=== PATIENT | female | born 1995 | race American Indian/Alaskan Native ===

== ENCOUNTER 2017-08-12 07:19 | Emergency (ER) | payer SELFPAY ==
[2017-08-12 08:02] LABS: Bilirubin,Urine NEG (Negative); Blood,Urine NEG (Negative); Color,Urine Yellow (Yellow); Mucus,Urine 3+ /HPF; Protein,Urine <15 mg/dL mg/dL (Negative); Urobilinogen,Urine < 2.0 mg/dL (<2.0)
[2017-08-12 08:04] LABS: Benzodiazepines Screen,Urine PRESUMPTIVE NEGATIVE; Cocaine Screen,Urine PRESUMPTIVE NEGATIVE; Methadone Screen,Urine PRESUMPTIVE NEGATIVE; Opiate Screen,Urine PRESUMPTIVE NEGATIVE
[2017-08-12 08:18] LABS: Amphetamine Screen,Urine PRESUMPTIVE POSITIVE; Cannabinoid Screen,Urine PRESUMPTIVE POSITIVE
[2017-08-12 08:40] LABS: BUN/Creatinine Ratio 27; Blood Urea Nitrogen 16 mg/dL (7-17); Calcium 10.1 mg/dL (8.4-10.2); Hemolysis Index 5
[2017-08-12 08:51] LABS: Basophils # (Auto) 0.1 K/mm3 (0.0-0.1); Basophils % (Auto) 1.2 % (0.0-1.8); Eosinophils # (Auto) 0.3 K/mm3 (0.0-0.4); Eosinophils % (Auto) 4.7 % (0.0-4.3); Hematocrit 43.5 % (30.3-42.9); Hemoglobin 14.9 gm/dl (10.1-14.3); Lymphocytes % (Auto) 34.9 % (13.4-35.0); Mean Corpuscular HGB Conc 34 % (30-34); Mean Corpuscular Hemoglobin 29 pg (28-32); Mean Corpuscular Volume 85 fl (79-97); Monocytes # (Auto) 0.5 K/mm3 (0.0-0.8); Monocytes % (Auto) 9.4 % (0.0-7.3); Platelet Count 319 K/mm3 (140-440); Red Blood Count 5.12 M/mm3 (3.65-5.03); Red Cell Distribution Width 15.7 % (13.2-15.2)
[2017-08-12] MEDS ORDERED: NACL 0.9% 1000 ML 1,000 ML IV ONE (11:48)
--- NOTE | 2017-08-12 11:52 | Emergency Department Report ---
HPI - General Chief Complaint: Psych Time Seen by Provider: 08/12/17 11:46 - HPI HPI: The patient is a 22-year-old female presents for evaluation of mental health. The patient reports 3 days of constant and severe sadness and hopelessness, associated with positive suicidal ideation. She states that she has thought of a plan to hang herself, but has not engaged in self harming action this. The patient denies fever, headache, unexplained weight loss or weight gain, heat or cold intolerance, skin, hair, or nail changes, neuro deficits, homicidal ideations, or auditory or visual hallucinations. ED Past Medical Hx - Past Medical History Hx Asthma: Yes - Surgical History Additional Surgical History: X4 - Social History Smoking Status: Current Every Day Smoker Substance Use Type: Alcohol, Marijuana ED Review of Systems ROS: Stated complaint: MENTAL HEALTH EVALUATION Other details as noted in HPI Constitutional: denies: fever ENT: denies: throat or neck pain Respiratory: denies: cough, shortness of breath Cardiovascular: denies: chest pain Endocrine: denies unexplained weight loss or gain Gastrointestinal: denies: abdominal pain, nausea Genitourinary: denies: dysuria Musculoskeletal: denies: leg swelling Skin: denies: rash Neurological: denies: headache Hematological/Lymphatic: denies: easy bleeding or easy bruising Psych: reports hopelessness Physical Exam - Physical Exam Vital Signs: Vital Signs 08/12/17 07:26 Temperature 97.9 F Pulse Rate 93 H Respiratory 16 Rate Blood Pressure 114/76 O2 Sat by Pulse 100 Oximetry Physical Exam: General: well-nourished, well-developed, patient tearful Head: Normocephalic, atraumatic Eyes: normal sclera ENT: Mucous membranes are pale and dry Neck: No neck stiffness, no cervical adenopathy Respiratory: Breath sounds equal bilaterally, no wheezing, rales, or rhonchi Cardio: S1 and S2 present, no murmurs, rubs, gallops, capillary refill is delayed Abdomen: Normoactive bowel sounds, soft abdomen, no tenderness Chest WALL/Back: No tenderness to palpation of the chest wall, no CVA tenderness with percussion Musc: No pitting edema Skin: No rash Neuro: no facial drooping, normal speech Psych: Flat affect, depressed mood, poor insight, suicidal ideation ED Course Vital Signs 08/12/17 07:26 Temperature 97.9 F Pulse Rate 93 H Respiratory 16 Rate Blood Pressure 114/76 O2 Sat by Pulse 100 Oximetry ED Medical Decision Making - Lab Data Result diagrams: 08/12/17 08:04 08/12/17 08:04 - Medical Decision Making The patient was seen and examined by myself. The patient is placed on a rn cardiac and continuous pulse ox. On initial evaluation, the patient was found to be in no distress. Labs are obtained. The patient be given 1 L normal saline fluid bolus for treatment of her dehydration. Lab results are grossly unremarkable. The patient is medically clear. Mental health is consulted. Mental health evaluates the patient and agrees that the patient is at risk of harm to self. A 1013 is completed. The patient will be admitted to a psychiatric facility once bed placement is obtained. Critical care attestation.: If time is entered above; I have spent that time in minutes in the direct care of this critically ill patient, excluding procedure time. ED Disposition Clinical Impression: Depression with suicidal ideation, Dehydration Disposition: DC/TX-65 PSY HOSP/PSY UNIT Is pt being admited?: No Does the pt Need Aspirin: No Condition: Stable Referrals: PRIMARY CARE, [Primary Care Provider] - 3-5 Days Forms: Accompanied Note Time of Disposition: 11:50
[2017-08-12] MEDS ORDERED: ALUM-MAG HYDROX-SIMETH 200-200-20MG/5ML PO PRN (17:40)
[2017-08-12] MEDS ORDERED: MILK OF MAGNESIA PO PRN (17:40)
--- NOTE | 2017-08-13 12:45 | Emergency Department Report ---
HPI - General Chief Complaint: Psych Time Seen by Provider: 08/12/17 11:46 - HPI HPI: Patient given single dose of fluconazole, 150 mg, for report of painless vaginal discharge, whitish, typical of yeast infections, which she has had previously. ED Past Medical Hx - Past Medical History Hx Asthma: Yes - Surgical History Additional Surgical History: X4 - Social History Smoking Status: Current Every Day Smoker Substance Use Type: Alcohol, Marijuana ED Review of Systems ROS: Stated complaint: MENTAL HEALTH EVALUATION Other details as noted in HPI Physical Exam - Physical Exam Vital Signs: Vital Signs 08/12/17 08/13/17 07:26 07:21 Temperature 97.9 F 98.6 F Pulse Rate 93 H 77 Respiratory 16 13 Rate Blood Pressure 114/76 Blood Pressure 92/54 [Left] O2 Sat by Pulse 100 100 Oximetry ED Course Vital Signs 08/12/17 08/13/17 07:26 07:21 Temperature 97.9 F 98.6 F Pulse Rate 93 H 77 Respiratory 16 13 Rate Blood Pressure 114/76 Blood Pressure 92/54 [Left] O2 Sat by Pulse 100 100 Oximetry ED Medical Decision Making - Lab Data Result diagrams: 08/12/17 08:04 08/12/17 08:04 Critical care attestation.: If time is entered above; I have spent that time in minutes in the direct care of this critically ill patient, excluding procedure time. ED Disposition Clinical Impression: Vaginal discharge Disposition: DC/TX-65 PSY HOSP/PSY UNIT Is pt being admited?: No Does the pt Need Aspirin: No Condition: Stable Referrals: PRIMARY CARE, [Primary Care Provider] - 3-5 Days Forms: Accompanied Note
[2017-08-13] MEDS ORDERED: DIFLUCAN PO ONE (14:43)
--- NOTE | 2017-08-13 15:00 | Consultation ---
History of Present Illness - Reason for Consult Consult date: 08/13/17 Reason for consult: Mental Health Evaluation Requesting physician: [facility] - Chief Complaint Chief complaint: "I'm mad at life" - History of Present Psychiatric Illness 22-year-old female presents for evaluation of mental health for SI's. Today the patient is cooperative, but vague during the assessment. She stated that her 4 children are in the custody of the fathers. She was asked about recreational drugs and she stated, "I smoke marijuana to calm my nerves." She stated that she experience AH's that can be overwhelming especially when she is "smoking." She stated that the voices were active last night. She was not willing to discuss her plan to hang herself. She is hopeful that her life will get better. She would not confirm or deny SI's. She denies HI's and VH's. She stated that her sleep can be "off sometimes." She denies a poor appetite. She denies alcohol consumption (etoh). Medications and Allergies Allergies Allergy/AdvReac Type Severity Reaction Status Date / Time shellfish derived AdvReac Angioedema Verified 08/12/17 07:26 Active Meds: Active Medications Acetaminophen (Tylenol) 650 mg PO Q4HR PRN PRN Reason: Pain MILD(1-3)/Fever >100.5/GONZALEZ Al Hydrox/Mg Hydrox/Simethicone (Alum-Mag Hydrox-Simeth [phone]/5ml) 30 ml PO Q4HR PRN PRN Reason: Indigestion Magnesium Hydroxide (Milk Of Magnesia) 30 ml PO Q12HR PRN PRN Reason: Constipation Past psychiatric history - Past Medical History Past Medical History: other Past Surgical History: No surgical history (4 vaginal ) - past Psychiatric treatment and history psychiatric treatment history: Denies a psy hx and a fam psy hx. - Social History Social history: lives with family Mental Status Exam - Vital signs Last Vital Signs Temp 98.6 F 08/13/17 07:21 Pulse 77 08/13/17 07:21 Resp 15 08/13/17 14:48 BP 92/54 08/13/17 07:21 Pulse Ox 100 08/13/17 14:48 - Exam Narrative exam: MSE: Appearance: calm, cooperative Behavior: regular eye contact Speech: regular rate and tone Mood: "okay" Affect: congruent to mood Thought Process: circumstantial Thought Content: denies HI's and VH's Motor Activity: lying in bed Cognition: A/O x 3 Insight: variable Judgment: variable Results Result Diagrams: 08/12/17 08:04 08/12/17 08:04 All other labs normal. Assessment and Plan Assessment and plan: Impression: Unspecified Mood with psy features. Cannabis Use DO. Today the patient is cooperative, but vague during the assessment. DDx: R/O Bipolar DO, MDD with psychosis, R/O Anxiety DO, R/O Substance Induced Mood DO Recommendation/Plan: Continue 1013. Reassess patient in 24 hours to determine if psychotics features are present and determine proper treatment.
[2017-08-14] MEDS ORDERED: GEODON IM ONE (14:19)
--- NOTE | 2017-08-14 16:15 | Progress Note ---
Subjective - Reason for Consult Reason for consult: follow up - Chief Complaint Chief complaint: Subjectively: Patient appears more euthymic and goal oriented. Patient denies acute auditory or visual hallucinations. Patient reports passive SI with no current plan or intent secondary to acute life stressors that are ongoing. 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 Some improvement noted as patient no longer acutely intoxicated Plan: Obtina collateral information from boyfriend to help determine appropriate level of care Maintain 1013 until collateral information from boyfriend is obtained Mental Status Exam - Vital signs Last Vital Signs Temp 99 F 08/14/17 08:08 Pulse 88 08/14/17 08:08 Resp 16 08/14/17 08:09 BP 102/59 08/14/17 08:08 Pulse Ox 100 08/14/17 08:09
[2017-08-14] MEDS ORDERED: MOTRIN PO ONE (17:46)
--- NOTE | 2017-08-15 11:08 | Progress Note ---
Subjective - Reason for Consult Consult date: 08/15/17 Reason for consult: Psychiatry Follow-up - Chief Complaint Chief complaint: "Call my boyfriend" 22-year-old female presents for evaluation of mental health for SI's. Today the patient is cooperative, but delusional during the assessment. She stated that she has a scar on her forehead and discussed this with a random woman at a local [facility]. She stated that this person told her that her head was "full of fluid", so the patient feel she has sinusitis. A scar was not noticed on the patient's forehead. Throughout the interview she displayed a euphoric mood. She denies SI/HI's and AVH's. Mental Status Exam - Vital signs Last Vital Signs Temp 98.4 F 08/15/17 07:47 Pulse 78 08/15/17 07:47 Resp 20 08/15/17 07:48 BP 102/63 08/15/17 07:47 Pulse Ox 100 08/15/17 07:48 - Exam Narrative exam: MSE: Appearance: calm, cooperative Behavior: regular eye contact Speech: regular rate and tone Mood: Euphoric Affect: congruent to mood Thought Process: circumstantial Thought Content: denies SI/HI's and AVH's, delusional Motor Activity: lying in bed Cognition: A/O x 3 Insight: variable Judgment: variable Assessment and Plan Impression: Unspecified Mood with psy features. Cannabis Use DO. Today the patient is cooperative, but vague during the assessment. DDx: R/O Bipolar DO, MDD with psychosis, R/O Anxiety DO, R/O Substance Induced Mood DO Recommendation/Plan: Continue 1013 with placement to inpatient psy services. Start Geodon 20 mg PO BID for mood/psychosis. Discussed possible metabolic side effects of Geodon with patient. Called her boyfriend Osvaldo at [phone] for collateral information. His voicemail is full, so a message could not be left for him.
[2017-08-15] MEDS: TYLENOL PO PRN (12:40)
[2017-08-15] MEDS: GEODON PO SCH ×2 (12:40→23:04)
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
[2017-08-16 15:54] VITALS: BP 98/57
[2017-08-16] MEDS: GEODON PO SCH (16:26)
[2017-08-16] MEDS: TYLENOL PO PRN (17:43)
== END 2017-08-16 18:31 ==
LOC: ED 07:19 → EEVIPCON 07:19 → ED 08-16 18:31
DX: F32.9 Major depressive disorder, single episode, unspecified (principal); E86.0 Dehydration; F17.200 Nicotine dependence, unspecified, uncomplicated; J45.909 Unspecified asthma, uncomplicated
CPT/HCPCS: 36415; 80048; 80307; 81001; 84703; 85025; 96360; 99283; G0480; J3486; J7030; 80320

== ENCOUNTER 2017-08-28 10:13 | Emergency (ER) | payer OTHER ==
[2017-08-28 10:25] VITALS: BP 98/57
== END 2017-08-28 12:30 | disposition left against medical advice (07) ==
LOC: ED 10:13
DX: N89.8 Other specified noninflammatory disorders of vagina (principal); Z53.21 Procedure and treatment not carried out due to patient leaving prior to being seen by health care provider

== ENCOUNTER 2018-11-26 18:28 | Emergency (ER) | payer SELFPAY ==
[2018-11-26 19:36] VITALS: BP 95/53
--- NOTE | 2018-11-26 19:36 | Event Note ---
ED Screening Note Date of service: 11/26/18 Time: 19:31 ED Screening Note: 23 y o female presents to Ed cc of itching to several parts of her body, scalp, ears and vagina x 3 weeks states she used lice shampoo with no relief and still feels itching and allergic reations to scalp and face states over the counter lice shampoo and had a reaction to it. This initial assessment/diagnostic orders/clinical plan/treatment(s) is/are subject to change based on patients health status, clinical progression and re- assessment by fellow clinical providers in the ED. Further treatment and workup at subsequent clinical providers discretion. Patient/guardian urged not to elope from the ED as their condition may be serious if not clinically assessed and managed. Initial orders include:
--- NOTE | 2018-11-26 22:42 | Emergency Department Report ---
ED General Adult HPI - General Chief complaint: Urogenital-Female Stated complaint: VAGINAL ITCHING/SORES IN HEAD Time Seen by Provider: 11/26/18 19:29 Source: patient Mode of arrival: Ambulatory Limitations: No Limitations - History of Present Illness Initial comments: 23 y o female presents to Ed cc of itching to several parts of her body, scalp, ears and vagina x 3 weeks states she used lice shampoo with no relief and still feels itching and allergic reations to scalp and face states over the counter lice shampoo and had a reaction to it. Also complains of vaginal discharge. Onset/Timin -: week(s) Location: head, genitals Quality: other (itches) Consistency: constant Associated Symptoms: denies other symptoms Treatments Prior to Arrival: other (ohlz-yoa-ficbltz lice treatment) - Related Data Previous Rx's Medication Instructions Recorded Last Taken Type Ketoconazole [Ketoconazole shampoo] 120 ml TP Q2W #120 ml 11/26/18 Unknown Rx Triamcinolone 0.5% [Kenalog 0.5% 1 applic TP TID #1 tube 11/26/18 Unknown Rx CREAM] metroNIDAZOLE [Flagyl] 500 mg PO Q8HR 7 Days #21 tablet 11/27/18 Unknown Rx Allergies Allergy/AdvReac Type Severity Reaction Status Date / Time shellfish derived AdvReac Angioedema Verified 08/12/17 07:26 ED Review of Systems ROS: Stated complaint: VAGINAL ITCHING/SORES IN HEAD Other details as noted in HPI Constitutional: denies: chills, fever Eyes: denies: eye pain, eye discharge, vision change ENT: denies: ear pain, throat pain Respiratory: denies: cough, shortness of breath, wheezing Cardiovascular: denies: chest pain, palpitations Endocrine: no symptoms reported Gastrointestinal: denies: abdominal pain, nausea, diarrhea Genitourinary: denies: urgency, dysuria, discharge Musculoskeletal: denies: back pain, joint swelling, arthralgia Skin: rash, lesions, change in hair/nails, pruritus Neurological: denies: headache, weakness, paresthesias Psychiatric: denies: anxiety, depression Hematological/Lymphatic: denies: easy bleeding, easy bruising ED Past Medical Hx - Past Medical History Previous Medical History?: Yes Hx Asthma: Yes - Surgical History Past Surgical History?: Yes Additional Surgical History: X4 - Social History Smoking Status: Current Every Day Smoker Substance Use Type: None - Medications Home Medications: Home Medications Medication Instructions Recorded Confirmed Last Taken Type Ketoconazole [Ketoconazole shampoo] 120 ml TP Q2W #120 ml 11/26/18 Unknown Rx Triamcinolone 0.5% [Kenalog 0.5% 1 applic TP TID #1 tube 11/26/18 Unknown Rx CREAM] metroNIDAZOLE [Flagyl] 500 mg PO Q8HR 7 Days #21 tablet 11/27/18 Unknown Rx ED Physical Exam - General Limitations: No Limitations General appearance: alert, in no apparent distress - Head Head exam: Present: atraumatic, normocephalic - Eye Eye exam: Present: normal appearance - ENT ENT exam: Present: mucous membranes moist - Neck Neck exam: Present: normal inspection - Respiratory Respiratory exam: Present: normal lung sounds bilaterally. Absent: respiratory distress - Cardiovascular Cardiovascular Exam: Present: regular rate, normal rhythm. Absent: systolic murmur, diastolic murmur, rubs, gallop - GI/Abdominal GI/Abdominal exam: Present: soft, normal bowel sounds - External exam: Present: other (abrasion external labia) Speculum exam: Present: normal speculum exam. Absent: erythema, vaginal discharge - Extremities Exam Extremities exam: Present: normal inspection - Back Exam Back exam: Present: normal inspection, full ROM - Neurological Exam Neurological exam: Present: alert, oriented X3, normal gait - Psychiatric Psychiatric exam: Present: normal affect, normal mood - Skin Skin exam: Present: warm, dry, intact, rash - Expanded Skin Exam Expanded Type of lesion: Present: rash Distribution of rash: head (ear), face (around her ears and nape of her neck) Description of rash: Present: tenderness, papular, purpuic ED Course Vital Signs 11/26/18 19:33 Temperature 98.5 F Pulse Rate 84 Respiratory 16 Rate Blood Pressure 95/53 O2 Sat by Pulse 100 Oximetry ED Medical Decision Making - Medical Decision Making 23 y o female presents to Ed cc of itching to several parts of her body, scalp, ears and vagina x 3 weeks states she used lice shampoo with no relief and still feels itching and allergic reations to scalp and face states over the counter lice shampoo and had a reaction to it. Also complains of vaginal discharge. H and appears to have a seborrheic dermatitis. We'll place her on ketoconazole shampoo as well as triamcinolone 0.5% cream to around her ears and the nape of her neck neck. Patient be referred to dermatology and CRM ANALYST. Patient microbiology from her vaginal wet prep shows that she has greater than 20% clue cells. Patient be treated for bacterial vaginosis. Critical care attestation.: If time is entered above; I have spent that time in minutes in the direct care of this critically ill patient, excluding procedure time. ED Disposition Clinical Impression: Contact dermatitis, BV (bacterial vaginosis) Disposition: TO HOME OR SELFCARE Is pt being admited?: No Does the pt Need Aspirin: No Condition: Stable Instructions: Contact Dermatitis (ED), Bacterial Vaginosis (ED), Metronidazole (By mouth) Additional Instructions: Complete antibiotics as prescribed. Use shampoo as prescribed and cream as prescribed. Follow up with a tallow pumper if symptoms persist or gets worse. Also follow up with the CRM ANALYST for your vaginal discharge. Prescriptions: metroNIDAZOLE [Flagyl] 500 mg PO Q8HR 7 Days #21 tablet Triamcinolone 0.5% [Kenalog 0.5% CREAM] 1 applic TP TID #1 tube Ketoconazole [Ketoconazole shampoo] 120 ml TP Q2W #120 ml Referrals: HENNY ANDERSON MD [Primary Care Provider] - 3-5 Days OLIVIER MACIEL MD [Staff Physician] - 3-5 Days YULISA HARMON MD [Staff Physician] - 3-5 Days Forms: Work/School Release Form(ED), STI Treatment and Prevention
== END 2018-11-27 00:22 | disposition home or self-care (01) ==
LOC: ED 18:28
DX: L25.9 Unspecified contact dermatitis, unspecified cause (principal); N76.0 Acute vaginitis; F17.200 Nicotine dependence, unspecified, uncomplicated; Z91.013 Allergy to seafood
CPT/HCPCS: 87210; 87591

== ENCOUNTER 2018-11-29 16:37 | Emergency (ER) | payer SELFPAY ==
[2018-11-29 16:54] VITALS: BP 101/58
--- NOTE | 2018-11-29 17:02 | Emergency Department Report ---
Chief Complaint: Skin/Abscess/Foreign Body Stated Complaint: FOLLOW UP VISIT Time Seen by Provider: 11/29/18 16:55 - HPI History of Present Illness: 23 y o female presents for follow up. 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 Due to findings the following was ordered: ED Medical Decision Making - Medical Decision Making Discussed to follow up with [facility] clinic Pamphlet given to pt VSS , no acute distress ED Disposition for MSE Clinical Impression: Contact dermatitis Disposition: Z- MED SCREENING EXAM-LEFT Is pt being admited?: No Does the pt Need Aspirin: No Condition: Stable
== END 2018-11-29 16:59 | disposition left against medical advice (07) ==
LOC: ED 16:37
DX: L25.9 Unspecified contact dermatitis, unspecified cause (principal); Z91.013 Allergy to seafood
CPT/HCPCS: 99281

== ENCOUNTER 2018-12-16 19:30 | Emergency (ER) | payer SELFPAY ==
[2018-12-16 20:30] VITALS: BP 130/93
[2018-12-16] MEDS ORDERED: IBUPROFEN PO ONE ×2 (22:02)
--- NOTE | 2018-12-16 23:49 | Emergency Department Report ---
ED ENT HPI - General Chief complaint: Earache Stated complaint: POSSIBLE EAR INFECTION, ACNE,HEAD DISCOLORING Time Seen by Provider: 12/16/18 22:05 Source: patient Mode of arrival: Ambulatory Limitations: No Limitations - History of Present Illness Initial comments: This is a 33-year-old female who presents to ED complaining of bilateral ear pain for the past couple of days. Patient states that she's noticed the pain is worse on the left side. Patient states that he did not sustain any injury or trauma to the ears or recent swimming. She denies fevers/chills/nausea vomiting/abdominal pains shortness of breath him a dizziness or headache - Related Data Previous Rx's Medication Instructions Recorded Last Taken Type Ketoconazole [Ketoconazole shampoo] 120 ml TP Q2W #120 ml 11/26/18 Unknown Rx Triamcinolone 0.5% [Kenalog 0.5% 1 applic TP TID #1 tube 11/26/18 Unknown Rx CREAM] metroNIDAZOLE [Flagyl] 500 mg PO Q8HR 7 Days #21 tablet 11/27/18 Unknown Rx Amoxicillin [Amoxicillin TAB] 875 mg PO BID #10 tablet 12/16/18 Unknown Rx Ibuprofen [Motrin] 800 mg PO Q8HR #30 tablet 12/16/18 Unknown Rx Allergies Allergy/AdvReac Type Severity Reaction Status Date / Time shellfish derived AdvReac Angioedema Verified 08/12/17 07:26 ED Dental HPI - General Chief complaint: Earache Stated complaint: POSSIBLE EAR INFECTION, ACNE,HEAD DISCOLORING Time Seen by Provider: 12/16/18 22:05 Source: patient Mode of arrival: Ambulatory Limitations: No Limitations - Related Data Previous Rx's Medication Instructions Recorded Last Taken Type Ketoconazole [Ketoconazole shampoo] 120 ml TP Q2W #120 ml 11/26/18 Unknown Rx Triamcinolone 0.5% [Kenalog 0.5% 1 applic TP TID #1 tube 11/26/18 Unknown Rx CREAM] metroNIDAZOLE [Flagyl] 500 mg PO Q8HR 7 Days #21 tablet 11/27/18 Unknown Rx Amoxicillin [Amoxicillin TAB] 875 mg PO BID #10 tablet 12/16/18 Unknown Rx Ibuprofen [Motrin] 800 mg PO Q8HR #30 tablet 12/16/18 Unknown Rx Allergies Allergy/AdvReac Type Severity Reaction Status Date / Time shellfish derived AdvReac Angioedema Verified 08/12/17 07:26 ED Review of Systems ROS: Stated complaint: POSSIBLE EAR INFECTION, ACNE,HEAD DISCOLORING Other details as noted in HPI Comment: All other systems reviewed and negative ED Past Medical Hx - Past Medical History Previous Medical History?: Yes Hx Asthma: Yes Additional medical history: Seasonal allergies - Surgical History Past Surgical History?: Yes Additional Surgical History: X4 - Social History Smoking Status: Current Some Day Smoker Substance Use Type: None - Medications Home Medications: Home Medications Medication Instructions Recorded Confirmed Last Taken Type Ketoconazole [Ketoconazole shampoo] 120 ml TP Q2W #120 ml 11/26/18 Unknown Rx Triamcinolone 0.5% [Kenalog 0.5% 1 applic TP TID #1 tube 11/26/18 Unknown Rx CREAM] metroNIDAZOLE [Flagyl] 500 mg PO Q8HR 7 Days #21 tablet 11/27/18 Unknown Rx Amoxicillin [Amoxicillin TAB] 875 mg PO BID #10 tablet 12/16/18 Unknown Rx Ibuprofen [Motrin] 800 mg PO Q8HR #30 tablet 12/16/18 Unknown Rx ED Physical Exam - General Limitations: No Limitations General appearance: alert, in no apparent distress - Head Head exam: Present: atraumatic, normocephalic - Eye Eye exam: Present: normal appearance - ENT ENT exam: Present: mucous membranes moist - Expanded ENT Exam Expanded Ear exam: Present: other (left partial tympanic membrane rupture) TM/Canal exam: Erythema: Left TM Mouth exam: Present: normal external inspection Throat exam: Positive: normal inspection - Neck Neck exam: Present: normal inspection, full ROM. Absent: tenderness, lymphadenopathy - Respiratory Respiratory exam: Present: normal lung sounds bilaterally. Absent: respiratory distress - Cardiovascular Cardiovascular Exam: Present: regular rate, normal rhythm. Absent: systolic murmur, diastolic murmur, rubs, gallop - GI/Abdominal GI/Abdominal exam: Present: soft, normal bowel sounds - Extremities Exam Extremities exam: Present: normal inspection - Back Exam Back exam: Present: normal inspection - Neurological Exam Neurological exam: Present: alert, oriented X3 - Psychiatric Psychiatric exam: Present: normal affect, normal mood - Skin Skin exam: Present: warm, dry, intact, normal color. Absent: rash ED Course Vital Signs 12/16/18 20:24 Temperature 98.3 F Pulse Rate 85 Respiratory 18 Rate Blood Pressure 130/93 O2 Sat by Pulse 100 Oximetry ED Medical Decision Making - Medical Decision Making 23-year-old female presents to the pressure tympanic membrane rupture of the left ear. Patient is in no acute respiratory distress. There is no hearing loss bilaterally. Hearing is intact bilaterally. Discussed follow-up with primary care physician in 3-5 days. She understands instructions and follow-up Critical care attestation.: If time is entered above; I have spent that time in minutes in the direct care of this critically ill patient, excluding procedure time. ED Disposition Clinical Impression: Rupture of tympanic membrane due to otitis media Disposition: TO HOME OR SELFCARE Is pt being admited?: No Does the pt Need Aspirin: No Condition: Stable Instructions: Ruptured Eardrum (ED) Additional Instructions: Make sure to follow up with the primary care physician as discussed. Take all your medications as you've been prescribed. You may get earwax removal drops from [id number] to use for earwax in the future If you have any worsening symptoms or develop new symptoms please return to ED immediately. Prescriptions: Amoxicillin [Amoxicillin TAB] 875 mg PO BID #10 tablet Ibuprofen [Motrin] 800 mg PO Q8HR #30 tablet Referrals: RAMONA BURTONLA [place] MD T[place]ONE [Primary Care Provider] - 3-5 Days SALVADRO FABIAN MD [Staff Physician] - 3-5 Days [facility] [Outside] - 3-5 Days [facility] [Outside] - 3-5 Days [facility] [Provider Group] - 3-5 Days Forms: Accompanied Note, Work/School Release Form(ED) Time of Disposition: 23:53
== END 2018-12-17 00:05 | disposition home or self-care (01) ==
LOC: ED 19:30
DX: H66.93 Otitis media, unspecified, bilateral (principal); J45.909 Unspecified asthma, uncomplicated; F17.200 Nicotine dependence, unspecified, uncomplicated

== ENCOUNTER 2020-03-23 14:28 | Emergency (ER) | payer MEDICAID | END 2020-03-23 15:10 | disposition left against medical advice (07) | LOC: ED 14:28 | DX: H92.10 Otorrhea, unspecified ear (principal); Z53.21 Procedure and treatment not carried out due to patient leaving prior to being seen by health care provider ==

== ENCOUNTER 2020-10-04 20:38 | Emergency (ER) | payer MEDICAID ==
[2020-10-04 23:57] VITALS: BP 128/89
--- NOTE | 2020-10-05 01:18 | Emergency Department Report ---
ED General Adult HPI - General Chief complaint: Abdominal Pain Stated complaint: TROUBLE SWALLOWING/SCRATCHY THROAT Time Seen by Provider: 10/05/20 00:53 Source: patient Mode of arrival: Ambulatory Limitations: No Limitations - History of Present Illness Initial comments: Patient is a 25-year-old female presents emergency room with complaints of seeing one worm present in her stool. She denies any recent travel. She denies any known sick contacts. She denies any fever, vomiting, diarrhea, hematochezia, melena, hematemesis, pus in the stool. She states that she is also been having a scratchy throat. She denies any difficulty swallowing or difficulty breathing. She denies any allergies to medications. - Related Data Previous Rx's Medication Instructions Recorded Last Taken Type Ketoconazole [Ketoconazole shampoo] 120 ml TP Q2W #120 ml 11/26/18 Unknown Rx Triamcinolone 0.5% [Kenalog 0.5% 1 applic TP TID #1 tube 11/26/18 Unknown Rx CREAM] metroNIDAZOLE [Flagyl] 500 mg PO Q8HR 7 Days #21 tablet 11/27/18 Unknown Rx Amoxicillin [Amoxicillin TAB] 875 mg PO BID #10 tablet 12/16/18 Unknown Rx Ibuprofen [Motrin] 800 mg PO Q8HR #30 tablet 12/16/18 Unknown Rx Allergies Allergy/AdvReac Type Severity Reaction Status Date / Time shellfish derived AdvReac Angioedema Verified 08/12/17 07:26 ED Review of Systems ROS: Stated complaint: TROUBLE SWALLOWING/SCRATCHY THROAT Other details as noted in HPI Comment: All other systems reviewed and negative ED Past Medical Hx - Past Medical History Hx Asthma: Yes Additional medical history: Seasonal allergies - Surgical History Additional Surgical History: X4 - Social History Smoking Status: Current Some Day Smoker Substance Use Type: None - Medications Home Medications: Home Medications Medication Instructions Recorded Confirmed Last Taken Type Ketoconazole [Ketoconazole shampoo] 120 ml TP Q2W #120 ml 11/26/18 Unknown Rx Triamcinolone 0.5% [Kenalog 0.5% 1 applic TP TID #1 tube 11/26/18 Unknown Rx CREAM] metroNIDAZOLE [Flagyl] 500 mg PO Q8HR 7 Days #21 tablet 11/27/18 Unknown Rx Amoxicillin [Amoxicillin TAB] 875 mg PO BID #10 tablet 12/16/18 Unknown Rx Ibuprofen [Motrin] 800 mg PO Q8HR #30 tablet 12/16/18 Unknown Rx ED Physical Exam - General Limitations: No Limitations General appearance: alert, in no apparent distress - Head Head exam: Present: atraumatic, normocephalic - Eye Eye exam: Present: normal appearance - ENT ENT exam: Present: normal orophraynx, mucous membranes moist, TM's normal bilaterally, normal external ear exam - Neck Neck exam: Absent: lymphadenopathy - Respiratory Respiratory exam: Present: normal lung sounds bilaterally. Absent: respiratory distress, wheezes, rales, rhonchi, stridor, chest wall tenderness, accessory muscle use, decreased breath sounds, prolonged expiratory - Cardiovascular Cardiovascular Exam: Present: regular rate, normal rhythm, normal heart sounds. Absent: systolic murmur, diastolic murmur, rubs, gallop - GI/Abdominal GI/Abdominal exam: Present: soft, normal bowel sounds. Absent: distended, tenderness, guarding, rebound, rigid - Neurological Exam Neurological exam: Present: alert, oriented X3 - Psychiatric Psychiatric exam: Present: normal affect, normal mood - Skin Skin exam: Present: warm, dry, intact ED Course Vital Signs 10/04/20 23:54 Temperature 98.4 F Pulse Rate 83 Respiratory 18 Rate Blood Pressure 128/89 O2 Sat by Pulse 100 Oximetry ED Medical Decision Making - Medical Decision Making Patient is a 25-year-old female presents emergency room with complaints of seeing one worm present in her stool. She denies any recent travel. She denies any known sick contacts. She denies any fever, vomiting, diarrhea, hematochezia, melena, hematemesis, pus in the stool. She states that she is also been having a scratchy throat. She denies any difficulty swallowing or difficulty breathing. She denies any allergies to medications. Vitals are normal. On exam breath sounds are clear bilaterally, no wheezing, no rales, no rhonchi, abdomen is soft, nontender, nondistended, no guarding, no rebound, no rigidity, normal pulses, no peritoneal signs, normal oropharynx, no tonsillar hypertrophy or exudates, uvula is midline, no uvular edema or deviation, no trismus, no tongue elevation, no muffled voice, no submandibular edema, normal TMs and canals bilaterally, no facial edema, no neck edema. centor criteria negative. advised pt May use Pin-x [id number]. Gargle with warm salt water. May use throat lozenges. Follow-up with a primary care doctor for reexamination. return to emergency room for new or symptoms. Critical care attestation.: If time is entered above; I have spent that time in minutes in the direct care of this critically ill patient, excluding procedure time. ED Disposition Clinical Impression: Worms in stool, Pain in throat Disposition: DC-01 TO HOME OR SELFCARE Is pt being admited?: No Does the pt Need Aspirin: No Condition: Stable Instructions: Abdominal Pain (ED) Additional Instructions: May use Pin-x [id number]. Gargle with warm salt water. May use throat lozenges. Follow-up with a primary care doctor for reexamination. Turn to emergency room for new or symptoms. Referrals: GABRIEL PAPPAS MD [Staff Physician] - 2-[address] [facility] [Provider Group] - 2-3 Days Time of Disposition: 01:17 Print Language: SWEDISH
== END 2020-10-05 01:30 | disposition home or self-care (01) ==
LOC: ED 20:38
DX: R07.0 Pain in throat (principal); B83.9 Helminthiasis, unspecified; J45.909 Unspecified asthma, uncomplicated; F17.200 Nicotine dependence, unspecified, uncomplicated; Z98.890 Other specified postprocedural states; Z79.1 Long term (current) use of non-steroidal anti-inflammatories (NSAID); Z79.2 Long term (current) use of antibiotics; Z79.899 Other long term (current) drug therapy; Z91.013 Allergy to seafood
CPT/HCPCS: 99282

== ENCOUNTER 2021-08-22 17:35 | Emergency (ER) | payer MEDICAID | END 2021-08-22 20:25 | disposition left against medical advice (07) | LOC: ED 17:35 | DX: R06.02 Shortness of breath (principal); Z53.21 Procedure and treatment not carried out due to patient leaving prior to being seen by health care provider ==